=== PATIENT | female | born 1975 | race Caucasian/White ===

== ENCOUNTER 2019-05-27 19:28 | Inpatient (IN) | payer SELFPAY ==
[~2019-05-27] VITALS: Ht 149.9 cm; Wt 4.1 kg
[2019-05-27 19:31] VITALS: Ht 149.9 cm; Wt 4.1 kg
--- NOTE | 2019-05-27 19:35 | NUR ---
EKG IN PROGRESS IN TRIAGE.
--- NOTE | 2019-05-27 19:47 | NUR ---
PATIENT [id number] PRESENTS TO THE ED WITH C/O SOB AND CHEST PAIN RADIATING TO BACK THAT STARTED THIS MORNING. PT STS SHE HAS HAD A DRY COUGH X 1 WEEK. LUNGS CLEAR IN BILATERAL UPPER AND LOWER LOBES. PT DENIES SMOKING. PT C/O NAUSEA BUT DENIES VOMITING, ABD SOFT, NON DISTENDED, NON TENDER, BS X 4 QUADS. SKIN WARM, DRY AND INTACT. PT PLACED ON ALL MONITORS FOR FURTHER OBSERVATION. WILL CONTINUE TO MONITOR.
--- NOTE | 2019-05-27 19:48 | NUR ---
DR CARDONA BEDSIDE PROVIDING MSE.
--- NOTE | 2019-05-27 19:57 | NUR ---
RESPIRTATORY BEDSIDE PROVIDING BREATHING TX.
--- NOTE | 2019-05-27 19:57 | NUR ---
MEDICATED PER MD ORDERS
[2019-05-27 19:59] LABS: BASOPHIL % 0.2 % (0-2); PLATELET COUNT 373 x10^3mcL (130-400)
[2019-05-27 20:19] LABS: RED CELL DISTRIBUTION WIDTH 19.8 % (11.5-14.5)
[2019-05-27 20:29] LABS: CALCIUM 8.2 mg/dL (8.5-10.1); CARBON DIOXIDE 21.6 mmol/L (21-32); CREATININE SERUM 1.2 mg/dL (0.6-1.0); POTASSIUM SERUM 3.5 mmol/L (3.5-5.1); rbc morphology (normal/abnorm) ABNORMAL (NORMAL)
[2019-05-27 20:33] LABS: BILIRUBIN TOTAL 0.28 mg/dL (0.20-1.00); TOTAL PROTEIN, SERUM 8.1 g/dL (6.4-8.2)
[2019-05-27 20:37] LABS: ALBUMIN 3.3 g/dL (3.4-5.0)
--- NOTE | 2019-05-27 21:49 | NUR ---
LÁZARO FROM LAB STATES BLOOD IN READY FOR PHYSICIAN RECRUITER. PRIMARY NURSE MADE AWARE
--- NOTE | 2019-05-27 22:17 | NUR ---
BLOOD TRANSFUSION BEGAN @2214 AND WITNESSED BY SORIN MORGAN AND MYSELF. VS PRE- BP 136/69 TEMP 97.9 P 74 RR 17 SATS 100% ON RA.
--- NOTE | 2019-05-27 22:42 | NUR ---
REPORT GIVEN TO SORIN POWELL FOR CONTINUED CARE OF PATIENT.
[2019-05-27 23:08] VITALS: BP 119/64
[2019-05-27 23:14] LABS: MAGNESIUM 1.7 mg/dL (1.8-2.4); PHOSPHOROUS 2.6 mg/dL (2.5-4.9)
--- NOTE | 2019-05-27 23:17 | NUR ---
RECEIVED PT FROM ER, PT ADMIT FOR CHEST PAIN , ANEMIA, PT IS A/O X4, VERBAL RESPONSIVE, LUNG SOUND CLEAR BILATERAL, NO COUGH, NO SOB, PT IS ON TELE 3, NSR, DENY ANY CHEST PAIN OR DISCOMFORT, BOWEL SOUND PRESENT ALL 4 QUARANTS, NO DISTENTION, NO TENDER. PEDAL PULSE PRESENT BOTH FEET, NO EDEMA, IV AT LEFT AC, NO LEAKING, NO INFILTRAITON. CONTINUE ON BLOOD TRANSFUSION, PT TOLERATED WELL. ALL ADLS ASSIST, ALL NEED MET, CALL LIGHT IN REACH, WILL CONTINUE TO MONITOR.
[2019-05-27 23:42] LABS: IRON 9 ug/dL (50-170); TOTAL IRON BINDING CAPACITY 338 ug/dL (250-450)
--- NOTE | 2019-05-28 01:03 | NUR ---
PATIENT'S PRBC INFUSION IS COMPLETE. VITALS WNL, NO SYMPTOMS OF TRANSFUSION REACTION. MORNING CBC AT 0500. IV INFUSING WITHOUT ERYTHEMA OR INFILTRATION. CALL LIGHT WITHIN REACH.
[2019-05-28 02:26] LABS: BASOPHIL % 0.6 % (0-2); PLATELET COUNT 308 x10^3mcL (130-400)
[2019-05-28 02:27] LABS: RED CELL DISTRIBUTION WIDTH 26.1 % (11.5-14.5)
[2019-05-28 02:42] LABS: rbc morphology (normal/abnorm) ABNORMAL (NORMAL)
[2019-05-28 05:52] VITALS: BP 115/62
--- NOTE | 2019-05-28 06:09 | NUR ---
PATIENT PREMEDICATED WITH TYLENOL AND BENADRYL FOR PRBC TRANSFUSION AT THIS TIME.
[2019-05-28 06:30] VITALS: BP 116/55
--- NOTE | 2019-05-28 06:40 | NUR ---
PRBC 300 ML TRANSFUSION STARTED AT THIS TIME. VITALS WNL.
[2019-05-28 06:52] LABS: BASOPHIL % 0.6 % (0-2); PLATELET COUNT 272 x10^3mcL (130-400)
[2019-05-28 06:55] VITALS: BP 112/56
--- NOTE | 2019-05-28 06:55 | NUR ---
15 MINS INTO PRBC INFUSION, VITALS REMAIN WNL. NO SIGNS OF TRANSFUSION REACTION. INFUSION SPEED INCREASED TO 125 ML HR. IV IS WITHOUT ERYTHEMA OR INFILTRATION. DENIES PAIN. NO SOB. BED LOCKED AND IN LOWEST POSIITON. CALL LIGHT AND BEDSIDE TABLE WITHIN REACH. WILL ENDORSE CARE TO DAYSHIFT NURSE.
[2019-05-28 07:03] LABS: RED CELL DISTRIBUTION WIDTH 27.2 % (11.5-14.5)
[2019-05-28 07:10] LABS: UA SPECIFIC GRAVITY 1.015 (1.005-1.035); microscopic required? YES; urine erythrocyte 2+ (NEGATIVE)
[2019-05-28 07:18] LABS: CALCIUM 7.6 mg/dL (8.5-10.1); CARBON DIOXIDE 21.2 mmol/L (21-32); CHLORIDE SERUM 113 mmol/L (98-107); GFR1 > 60 mL/min; GLUCOSE SERUM 78 mg/dL (74-106); MAGNESIUM 1.8 mg/dL (1.8-2.4); PHOSPHOROUS 3.3 mg/dL (2.5-4.9); POTASSIUM SERUM 3.8 mmol/L (3.5-5.1); SODIUM SERUM 145 mmol/L (136-145)
[2019-05-28 07:24] LABS: AMPHETAMINE QUAL UR NONE DETECTED (See below)
[2019-05-28 08:14] VITALS: BP 114/47
[2019-05-28 09:24] LABS: rbc morphology (normal/abnorm) ABNORMAL (NORMAL)
--- NOTE | 2019-05-28 09:45 | NUR ---
BLOOD TRANSFUSION COMPLETE, VITALS TAKEN/DOCUMENTED AND STABLE. NO REACTION OBSERVED AND PATIENT DENIES CHILLS/ITCHINESS, ETC. DAUGHTER AT BEDSIDE. PATIENT DENIES PAIN OR DISCOMFORT AT THIS TIME. INFORMED PATIENT THE NEED FOR A FULL BLADDER TO PERFORM US PELVIC, VERBALIZED UNDERSTANDING. WILL CONT TO MONITOR.
[2019-05-28 11:51] VITALS: BP 133/73
[2019-05-28] MEDS ORDERED: KEFLEX500 M1 PO (13:53)
[2019-05-28] MEDS ORDERED: FER300 PO (13:54)
[2019-05-28 14:16] VITALS: BP 133/73
--- NOTE | 2019-05-28 17:29 | NUR ---
DISCHARGE INSTRUCTIONS AND PRESCRIPTION GIVEN, PATIENT AND DAUGHTER VERBALIZED UNDERSTANDING. IV DC'D CATH INTACT. PATIENT REQUESTING TO EAT FIRST BEFORE LEAVING, ADVISED TO USE CALL LIGHT WHEN READY TO LEAVE. FAMILY AT BEDSIDE. WILL CONT TO MONITOR
== END 2019-05-28 17:57 | disposition home or self-care (01) | DRG 811 ==
LOC: ED 19:28 → EDBD 19:28 → DU 22:13
PROVIDERS: Emergency Medicine; ADMIT Internal Medicine
PROC: 30233N1 Transfusion of Nonautologous Red Blood Cells into Peripheral Vein, Percutaneous Approach (ICD-10-PCS; principal; 2019-05-27)
DX: D50.8 Other iron deficiency anemias (principal); N17.0 Acute kidney failure with tubular necrosis; J80 Acute respiratory distress syndrome; E44.1 Mild protein-calorie malnutrition; Z68.1 Body mass index [BMI] 19.9 or less, adult; E86.0 Dehydration; E87.8 Other disorders of electrolyte and fluid balance, not elsewhere classified; E83.42 Hypomagnesemia; E83.51 Hypocalcemia; N83.202 Unspecified ovarian cyst, left side; Z83.3 Family history of diabetes mellitus; Z82.49 Family history of ischemic heart disease and other diseases of the circulatory system; Z79.899 Other long term (current) drug therapy
CPT/HCPCS: 83880; 85378; G0378; J0696; J1885; J2270; J7030; J7040; J7050; P9016; Q0092; Q0163